=== PATIENT | male | born 1960 | race Caucasian/White ===

== ENCOUNTER 2017-01-23 18:31 | Emergency (ER) | payer OTHER ==
[~2017-01-23] VITALS: Ht 172.7 cm; Wt 97.7 kg
[2017-01-23] MEDS ORDERED: CYANOCOBALAMIN 1,000 MCG/ML VIAL IM ONE (21:15)
[2017-01-23] MEDS ORDERED: DIAZEPAM 5 MG TABLET PO ONE (21:15)
[2017-01-23] MEDS ORDERED: THIAMINE HCL 100 MG/ML 2ML VIAL IM ONE (21:15)
[2017-01-23 21:48] VITALS: BP 121/72
== END 2017-01-23 21:49 | disposition home or self-care (01) ==
LOC: EMS 18:34
DX: F10.239 Alcohol dependence with withdrawal, unspecified (principal); R25.1 Tremor, unspecified
CPT/HCPCS: 96372; 99284; J3411; J3420